=== PATIENT | female | born 1995 | race Caucasian/White ===

== ENCOUNTER 2018-12-04 08:01 | Inpatient (IN) | payer BC ==
[~2018-12-04] VITALS: Ht 157.5 cm; Wt 85.7 kg
[~2018-12-04 08:01] MED LIST: CEFOXITIN SODIUM 2 G in DEXT 5% WATER 100 ML IV STA; LACTATED RINGERS 1,000 ML IV SCH
[2018-12-04] MEDS ORDERED: INDOCYANINE GREEN 25 MG VIAL IV ONE (08:17)
[2018-12-04] MEDS ORDERED: LIDOCAINE HCL 1% 20ML VIAL (Pyxis) INJ ONE (08:17)
[2018-12-04] MEDS ORDERED: BACITRACIN 50,000 UNITS/VIAL ONE (08:18)
[2018-12-04] MEDS ORDERED: SKIN ADHESIVE 0.7 GM EA TOP ONE (08:18)
[2018-12-04] MEDS ORDERED: NORMAL SALINE 0.9% 10 ML SYR ONE (08:18)
[2018-12-04] MEDS ORDERED: BUPIVACAINE HCL/PF 0.5% (5MG/ML) 10ML ONE (08:18)
[2018-12-04 08:53] LABS: UCG SCREEN NEGATIVE
[2018-12-04] MEDS ORDERED: FENTANYL CITRATE/PF 50MCG/ML 2ML VIAL ONE ×2 (09:47→11:09)
[2018-12-04] MEDS ORDERED: PROPOFOL 200MG/20ML VIAL IV ONE (09:47)
[2018-12-04] MEDS ORDERED: MIDAZOLAM HCL 2 MG/2 ML VIAL ONE (09:47)
[2018-12-04] MEDS ORDERED: LIDOCAINE HCL/PF 1% 10 MG/ML 5ML VIAL ONE (09:48)
[2018-12-04] MEDS ORDERED: ROCURONIUM BROMIDE 10MG/ML VIAL 5ML IV ONE ×2 (09:48→10:44)
[2018-12-04] MEDS ORDERED: KETOROLAC 30MG/ML VIAL ONE (11:10)
[2018-12-04] MEDS ORDERED: DEXAMETHASONE 4MG/ML 1ML VIAL ONE (11:12)
[2018-12-04] MEDS ORDERED: NEOSTIGMINE METHYLSULFATE 1MG/ML 10 ML VIAL ONE (11:51)
[2018-12-04] MEDS ORDERED: GLYCOPYRROLATE 0.2 MG/ML 2ML VIAL ONE (11:51)
[2018-12-04] MEDS ORDERED: MEPERIDINE HCL/PF 25MG/ML CPJ IV PRN (12:30)
[2018-12-04] MEDS ORDERED: FENTANYL CITRATE/PF 50MCG/ML 2ML VIAL IV PRN (12:30)
[2018-12-04] MEDS ORDERED: HYDROMORPHONE HCL/PF 2MG/ML CPJ IV PRN ×2 (12:30→14:45)
[2018-12-04] MEDS ORDERED: ONDANSETRON HCL 4MG/2ML INJ IV PRN ×2 (12:30→15:00)
[2018-12-04] MEDS: HYDROMORPHONE HCL/PF 2MG/ML CPJ IV PRN ×2 (13:26→13:42)
[2018-12-04 14:47] VITALS: BP 129/87
[2018-12-04 16:00] VITALS: BP 105/74
[2018-12-04] MEDS: KETOROLAC 15MG/ML VIAL IV SCH ×2 (16:50→20:02)
[2018-12-04] MEDS: SODIUM CHLORIDE 0.45% 1,000 ML IV SCH (19:55)
[2018-12-04 20:00] VITALS: BP 122/69
[2018-12-05] VITALS: BP 105/60
[2018-12-05] MEDS: SODIUM CHLORIDE 0.45% 1,000 ML IV SCH ×2 (00:59→06:16)
[2018-12-05] MEDS: KETOROLAC 15MG/ML VIAL IV SCH ×2 (02:41→09:32)
[2018-12-05 04:00] VITALS: BP 95/51
[2018-12-05 08:00] VITALS: BP 98/60
[2018-12-05 12:00] VITALS: BP 102/66
[2018-12-05 14:50] VITALS: BP 102/66
== END 2018-12-05 16:10 | disposition home or self-care (01) | DRG 419 ==
LOC: OR 08:01 → 6EST 08:02
PROVIDERS: ADMIT Specialist; ATTEND Specialist
PROC: 0FT44ZZ Resection of Gallbladder, Percutaneous Endoscopic Approach (ICD-10-PCS; principal; 2018-12-04)
PROC: 8E0W4CZ Robotic Assisted Procedure of Trunk Region, Percutaneous Endoscopic Approach (ICD-10-PCS; 2018-12-04)
DX: K80.10 Calculus of gallbladder with chronic cholecystitis without obstruction (principal)
CPT/HCPCS: 81025; 88304; J0694; J1100; J1170; J1885; J2250; J2405; J2704; J2710; J3010; J3490; J7060; Q9957